=== PATIENT | female | born 1985 | race Caucasian/White ===

== ENCOUNTER 2016-08-11 10:32 | Emergency (ER) | payer SELFPAY ==
[~2016-08-11] VITALS: Ht 162.6 cm; Wt 95.4 kg
[2016-08-11 13:43] LABS: HCG UR OBC PASS
[2016-08-11 14:09] VITALS: BP 119/71
== END 2016-08-11 14:29 | disposition home or self-care (01) ==
LOC: ED 13:50
DX: B37.3 Candidiasis of vulva and vagina (principal); N89.8 Other specified noninflammatory disorders of vagina
CPT/HCPCS: 81001; 81025; 87086; 87210; 87491; 87591; 87808; 99284